=== PATIENT | male | born 1935 | race Caucasian/White ===

== ENCOUNTER 2016-11-15 10:35 | Emergency (ER) | payer OTHER ==
[2016-11-15 11:03] VITALS: BP 190/103; PULSE 65; TEMP 97.5; BMI 25.1
[2016-11-15] MEDS ORDERED: AMOX TR/POT CLAV 875MG/125MG TABLETS (FP) PO ONE (11:34)
--- NOTE | 2016-11-15 11:34 | PDOC ---
History of Present Illness - General Chief Complaint: Bite Stated Complaint: DOG BITE OF RIGHT ESPINOSA Time Seen by Provider: 11/15/16 10:53 - History of Present Illness Initial Comments: 11/15/16 11:06 81 M with h/o HTN presents with dog bite to RLE. He states that he was running by his neighbor's house when her dog, a boxer, bit him once on his R leg. It did not latch on or bite more than once. Pt was able to run away immediately. He notes 2 small puncture wounds on his leg but denies any other injury. Denies falling, denies headstrike/LOC. Pt is accompanied to ER by dog's agency owner, who states that the dog has been behaving normally recently. The dog is typically territorial and will dameon after and bark at people walking by. However, today she believes there was a failure in her electric fence, which led to the dog escaping the yard and biting the pt. Past History - Past Medical History Allergies/Adverse Reactions: Allergies Allergy/AdvReac Type Severity Reaction Status Date / Time No Known Allergies Allergy Verified 11/17/16 11:37 Home Medications: Ambulatory Orders Amlodipine Besylate [Norvasc -] 5 mg PO DAILY 11/15/16 Amoxicillin/Potassium Clav [Augmentin 875-125 Tablet] 1 each PO BID #14 tablet 11/15/16 Aspirin [Ecotrin] 81 mg PO DAILY 11/15/16 Primidone PO HS 11/15/16 Propranolol HCl PO DAILY 11/15/16 HTN: Yes Other medical history: ESSENTIAL TREMOR - Suicide/Smoking/Psychosocial Hx Smoking History: Never smoked Hx Alcohol Use: No Drug/Substance Use Hx: No Substance Use Type: None Review of Systems - Review of Systems Comments:: 11/15/16 11:36 "GENERAL/CONSTITUTIONAL: No fever or chills. No weakness. HEAD, EYES, EARS, NOSE AND THROAT: No change in vision. No ear pain or discharge. No sore throat. CARDIOVASCULAR: No chest pain or shortness of breath. RESPIRATORY: No cough, wheezing, or hemoptysis. GASTROINTESTINAL: No nausea, vomiting, diarrhea or constipation. GENITOURINARY: No dysuria, frequency, or change in urination. MUSCULOSKELETAL: No joint or muscle swelling or pain. No neck or back pain. SKIN: puncture wound to R leg NEUROLOGIC: No headache, vertigo, loss of consciousness, or change in strength/ sensation. ENDOCRINE: No increased thirst. No abnormal weight change. HEMATOLOGIC/LYMPHATIC: No anemia, easy bleeding, or history of blood clots. ALLERGIC/IMMUNOLOGIC: No hives or skin allergy. " *Physical Exam - Vital Signs Last Vital Signs Temp Pulse Resp BP Pulse Ox 97.5 F L 65 16 190/103 97 11/15/16 10:51 11/15/16 10:51 11/15/16 10:51 11/15/16 10:51 11/15/16 10:51 - Physical Exam Comments: 11/15/16 11:36 "GENERAL: Awake, alert, and fully oriented, in no acute distress HEAD: No signs of trauma EYES: PERRLA, EOMI, sclera anicteric, conjunctiva clear ENT: Auricles normal inspection, hearing grossly normal, nares patent, oropharynx clear without exudates. Moist mucosa NECK: Nontender, no stepoffs, Normal ROM, supple, no lymphadenopathy, JVD, or masses LUNGS: Breath sounds equal, clear to auscultation bilaterally. No wheezes, and no crackles HEART: Regular rate and rhythm, normal S1 and S2, no murmurs, rubs or gallops ABDOMEN: Soft, nontender, normoactive bowel sounds. No guarding, no rebound. No masses EXTREMITIES: Normal range of motion, no edema. No clubbing or cyanosis. No cords, erythema, or tenderness NEUROLOGICAL: Cranial nerves II through XII intact. 5/5 strength and sensation in all extremities, Normal speech, normal gait SKIN: 1 cm puncture wound to anterior R leg, with superficial 1cm laceration adjacent. Also <1cm puncture wound to posterior R leg. No active bleeding. Distal pulses intact, no bony tenderness, no surrounding erythema Medical Decision Making - Medical Decision Making 11/15/16 11:37 81 M with dog bite to RLE. Will defer primary closure as it is a puncture wound. Wound irrigated with saline and betadine solution. Per history, dog does not seem high risk for rabies. Will defer ppx for rabies for now. Dog bite form completed and sent to [facility]. Pt and dog's agency owner instructed on 10-day confinement of dog and observation. - XR - Augmentin - F/u wound check 2 days. *DC/Admit/Observation/Transfer Diagnosis at time of Disposition: Dog bite - Discharge Dispostion Disposition: HOME Condition at time of disposition: Good - Prescriptions Prescriptions: Amoxicillin/Potassium Clav [Augmentin 875-125 Tablet] 1 each PO BID #14 tablet - Referrals Referrals: Leander Poe [Primary Care Provider] - - Patient Instructions Printed Discharge Instructions: DI for Animal Bites Additional Instructions: Take the Augmentin as prescribed to prevent infection. Return to the ER in 48 hours to have your wound re-evaluated. Failure to do so may result in infection , serious illness, or even . The dog that bit you will need to be confined for 10 days and observed closely for any behavioral changes. If the dog exhibits any changes in its behavior, return to the ER immediately, as you will need rabies treatment. Rabies is a fatal disease if left untreated. - Attestations Physician Attestion: 11/15/16 12:36 I, Dr. Zaid Cruz MD, attest that this document has been prepared under my direction and personally reviewed by me in its entirety. I further attest, that it accurately reflects all work, treatment, procedures and medical decision -making performed by me.
[2016-11-15] MEDS ORDERED: DIPHTH,PERTUSS(ACELL),TET VAC 0.5 ML VIAL IM ONE (11:53)
[2016-11-15] MEDS ORDERED: AMOX TR/POT CLAV 875MG/125MG TABLETS (FP) ONE (12:21)
== END 2016-11-15 12:47 | disposition home or self-care (01) ==
LOC: FER 10:35
DX: Z48.01 Encounter for change or removal of surgical wound dressing (principal)
CPT/HCPCS: 73590-TC-RT; 99282-25

== ENCOUNTER 2016-11-17 11:35 | Emergency (ER) | payer OTHER ==
[2016-11-17 11:43] VITALS: BP 153/86; PULSE 56; TEMP 98.7; BMI 25.1
--- NOTE | 2016-11-17 11:52 | PDOC ---
History of Present Illness - General Chief Complaint: Revisit,Wound Recheck Stated Complaint: WOUND CHECK Time Seen by Provider: 11/17/16 11:38 History Source: Patient Exam Limitations: No Limitations - History of Present Illness Initial Comments: 11/17/16 11:48 81 yo male with recent dog bit, seen on tuesday 2 days prior, here wtih c/o fever. states his temperature was 98.7 which he considered a fever. no chills. no worsening redness or swelling. has been taking augmentin twice daily. no mod factor. no n/v. no pain. dog bit was a domesticated animal acros the street. Past History - Past Medical History Allergies/Adverse Reactions: Allergies Allergy/AdvReac Type Severity Reaction Status Date / Time No Known Allergies Allergy Verified 11/17/16 11:37 Home Medications: Ambulatory Orders Amlodipine Besylate [Norvasc -] 5 mg PO DAILY 11/15/16 Amoxicillin/Potassium Clav [Augmentin 875-125 Tablet] 1 each PO BID #14 tablet 11/15/16 Aspirin [Ecotrin] 81 mg PO DAILY 11/15/16 Primidone PO HS 11/15/16 Propranolol HCl PO DAILY 11/15/16 HTN: Yes - Immunization History Immunization Up to Date: Yes - Suicide/Smoking/Psychosocial Hx Smoking History: Never smoked Have you smoked in the past 12 months: No Information on smoking cessation initiated: No Hx Alcohol Use: No Drug/Substance Use Hx: No Substance Use Type: None Review of Systems - Review of Systems Constitutional: Yes: Chills, Fever (98.7). No: See HPI, Diaphoresis HEENTM: No: Eye Pain, Blurred Vision Respiratory: No: Cough, Orthopnea Cardiac (ROS): No: Chest Pain ABD/GI: No: Abdominal Distended : No: Burning, Dysuria Musculoskeletal: No: Back Pain Integumentary: No: Bruising Neurological: No: Numbness All Other Systems: Reviewed and Negative *Physical Exam - Vital Signs Last Vital Signs Temp Pulse Resp BP Pulse Ox 98.7 F 56 L 20 153/86 99 11/17/16 11:36 11/17/16 11:36 11/17/16 11:36 11/17/16 11:36 11/17/16 11:36 - Physical Exam General Appearance: Yes: Appropriately Dressed Neck: positive: Trachea midline Respiratory/Chest: positive: Lungs Clear, Normal Breath Sounds Cardiovascular: positive: Regular Rhythm, Regular Rate, S1, S2. negative: Edema Gastrointestinal/Abdominal: positive: Normal Bowel Sounds, Flat, Soft. negative : Tender Musculoskeletal: positive: Normal Inspection. negative: CVA Tenderness Integumentary: positive: Normal Color, Dry, Warm, Other (right shearer with small scabbed puncture wound. no erythema. no warmth. no exudate. posterior calf same. no exuate or erythema.) ED Treatment Course - LABORATORY CBC & Chemistry Diagram: 11/17/16 11:51 Medical Decision Making - Medical Decision Making 11/17/16 12:43 pt labs unremarkable. no signs of infection and afebrile. continue augmentin. dc fu pcp *DC/Admit/Observation/Transfer Diagnosis at time of Disposition: Dog bite of calf, Wound check, abscess - Discharge Dispostion Disposition: HOME Condition at time of disposition: Improved Admit: No - Patient Instructions Printed Discharge Instructions: How to Care for a Domestic Animal Bite, DI for Animal Bites Additional Instructions: you shoudl soak your leg twice daily . apply topical bacitracin or topical antiobiotic ointment. return for redness swelling or any concerns. continue taking augmentin as prescribed.
[2016-11-17 12:00] LABS: BASOPHIL 0.5 % (0-2.0); EOSINOPHIL 4.8 % (0-4.5); MCH 30.1 pg (25.7-33.7); MCHC 33.6 g/dl (32.0-35.9); MEAN CELL VOLUME 89.8 fl (80-96); MEAN PLT VOLUME 7.7 fl (7.5-11.1); NEUTROPHILS 66.4 % (42.8-82.8); PLATELET COUNT 197 K/MM3 (134-434); WHITE BLOOD COUNT 8.6 K/mm3 (4.0-10.8)
== END 2016-11-17 12:50 | disposition home or self-care (01) ==
LOC: FER 11:35
DX: Z48.00 Encounter for change or removal of nonsurgical wound dressing (principal); I10 Essential (primary) hypertension
CPT/HCPCS: 36415; 85025; 99281-25

== ENCOUNTER 2019-12-31 09:33 | Emergency (ER) | payer OTHER | END 2019-12-31 10:42 | disposition home or self-care (01) | LOC: JVIRT 09:33 | DX: Z03.818 Encounter for observation for suspected exposure to other biological agents ruled out (principal) | CPT/HCPCS: C9803; Q3014-GT; U0003 ==

== ENCOUNTER 2020-08-18 12:23 | Emergency (ER) | payer OTHER ==
[2020-08-18] MEDS ORDERED: DIPHTH,PERTUSS(ACELL),TET 0.5 ML DISP.SYRIN IM ONE ×2 (12:37→13:01)
[2020-08-18] MEDS ORDERED: MUPIROCIN 2% TOPICAL OINTMENT 22 GM TUBE ONE (13:00)
[2020-08-18 13:10] VITALS: BP 177/83; PULSE 99; TEMP 98.5; BMI 25.8
== END 2020-08-18 13:28 | disposition home or self-care (01) ==
LOC: FER 12:23
PROC: 3E0234Z Introduction of Serum, Toxoid and Vaccine into Muscle, Percutaneous Approach (ICD-10-PCS; principal; 2020-08-18)
DX: S50.311A Abrasion of right elbow, initial encounter (principal)
CPT/HCPCS: 90471; 90715; 99284-25

== ENCOUNTER 2024-09-14 10:54 | Emergency (ER) | payer OTHER ==
[2024-09-14 11:08] VITALS: RESP 18; BMI 25.8
[2024-09-14 11:21] VITALS: BP 140/65; PULSE 56; TEMP 97.5
[2024-09-14] MEDS ORDERED: VANCOMYCIN HCL 250 MG PO ONE (12:37)
[2024-09-14] MEDS: VANCOMYCIN HCL 125 MG CAPSULE (RESTRICTED TO ID ONLY) PO ONE (12:54)
== END 2024-09-14 13:55 | disposition home or self-care (01) ==
LOC: FER 10:54
PROC: 0HQLXZZ Repair Left Lower Leg Skin, External Approach (ICD-10-PCS; principal; 2024-09-14)
DX: S81.812A Laceration without foreign body, left lower leg, initial encounter (principal); W18.09XA Striking against other object with subsequent fall, initial encounter; Y93.H2 Activity, gardening and landscaping
CPT/HCPCS: 73590-TC-LT-FY; 73590-TC-RT-FY; 99284-25

== ENCOUNTER 2024-09-25 16:48 | Emergency (ER) | payer OTHER ==
[2024-09-25 17:04] VITALS: BP 165/97; PULSE 61; RESP 18; TEMP 97.3; BMI 25.8
[2024-09-25] MEDS ORDERED: VANCOMYCIN 500 MG VIAL (RESTRICTED TO ID ONLY) ONE (18:13)
[2024-09-25] MEDS ORDERED: VANCOMYCIN 1,000 MG VIAL (RESTRICTED TO ID ONLY) ONE (18:14)
[2024-09-25] MEDS: VANCOMYCIN HCL 1,500 MG in DEXTROSE 5%-WATER - 500 ML IVPB ONE (18:20)
[2024-09-25 18:28] LABS: ABSOLUTE IMMATURE GRANULOCYTES 0.09 x10^3/uL (0.0-0.031); BASOPHILS # 0.05 x10^3/uL (0.01-0.08); EOSINOPHIL % 3.5 % (0.8-7.0); EOSINOPHILS # 0.26 x10^3/uL (0.04-0.54); MCHC 33.3 g/dl (32.3-36.5); MEAN CELL VOLUME 93.6 fl (79.0-92.2); MEAN PLT VOLUME 10.1 fl (9.4-12.4); MONOCYTE # 0.68 x10^3/uL (0.30-0.82); MONOCYTE % 9.1 % (5.3-12.2); RDW 13.2 % (12.6-16.6)
[2024-09-25 18:37] LABS: ALK PHOS 71.0 U/L (45-117); CO2 28.0 mmol/L (21-32); CREATININE 0.9 mg/dl (0.6-1.3); GLUCOSE,RANDOM 101.0 mg/dl (74-106); SGOT/AST 19.0 U/L (15-37); SGPT/ALT 21.0 U/L (7-52); TOT PROT 6.3 g/dl (6.4-8.2)
== END 2024-09-25 19:48 | disposition home or self-care (01) ==
LOC: FER 16:48
DX: L03.116 Cellulitis of left lower limb (principal); M79.662 Pain in left lower leg; R60.0 Localized edema
CPT/HCPCS: 36415; 80053; 85025; 85651; 86140; 96365; 96367; 99284-25